=== PATIENT | female | born 1955 | race American Indian/Alaskan Native ===

== ENCOUNTER 2018-05-04 18:23 | Emergency (ER) | payer OTHER ==
[2018-05-04] MEDS ORDERED: ULTRAM PO ONE (21:29)
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
[2018-05-04 23:14] VITALS: BP 133/68
== END 2018-05-04 23:12 | disposition home or self-care (01) ==
LOC: ED 18:23
DX: S16.1XXA Strain of muscle, fascia and tendon at neck level, initial encounter (principal); J45.909 Unspecified asthma, uncomplicated; Z88.0 Allergy status to penicillin; Z88.6 Allergy status to analgesic agent; V89.2XXA Person injured in unspecified motor-vehicle accident, traffic, initial encounter; Y93.89 Activity, other specified; Y99.8 Other external cause status; Y92.410 Unspecified street and highway as the place of occurrence of the external cause
CPT/HCPCS: 72040; 99283